=== PATIENT | female | born 1940 | race Caucasian/White ===

== ENCOUNTER → 2016-05-16 | Outpatient (CLI) | payer MEDICARE, OTHER ==
[~2016-05-16] MED LIST: ALBUTEROL17 GM INH; ALL DAY ALLERGY10 M3 PO; AMLODIPINE BESYL5 MG PO; ATENOLOL25 MG PO; ATENOLOL50 MG PO; AZITHROMYCIN250 MG PO; B-COMPLEX-VITA1 EACH SL; BACTRIM DS TABL1 TA1 PO; BENICAR20 MG PO; BENTYL20 MG PO; CERTAGEN PO; CITALOPRAM HBR40 M1 PO; COUMADIN5 MG; COUMADIN5 MG PO; DARVOCET-N 1001 TA1 PO; DELTASONE20 MG PO; ENFOLAST TABLE1 EACH PO; FERROUS SULFATE PO; FLAGYL PO; FLOVENT DISKUS50 MCG; FOLIC ACID800 MCG PO; FUROSEMIDE40 MG PO; GABAPENTIN400 MG PO; HORIZANT; HYDROCHLOROTHIA25 MG PO; HYDROCODON-ACE1 EAC8 PO; HYDROMET SYRUP480 ML PO; IRON1 TA1 PO; K-DUR20 ME1 PO; KCL PO; KLOR-CON PO; LASIX PO; LISINOPRIL PO; LISINOPRIL20 MG PO; LOMOTIL WHITE2.5 MG PO; LOVENOX SUBQ; LOVENOX80 MG/0.8 INJ; METAFOLBIC TAB1 EACH PO; METHYLPREDNISOLO4 M1 PO; METRONIDAZOLE PO; MOBIC PO; MUCINEX100 MG/5 M PO; NAPROXEN375 MG PO; NEURONTIN PO; NEURONTIN600 MG PO; NEVANAC OP; OMEPRAZOLE40 MG PO; OMNIPRED10 ML OP; OXYCODONE HCL10 MG PO; PREDNISONE PO; PRILOSEC PO; PROGLYCEM PO; PROGLYCEM SL; PROMETH-CODEIN 65 ML PO; REGLAN PO; TENORMIN50 MG PO; ULTRAM PO; VICODIN 5/500 T1 TAB PO; VIGAMOX3 M1 OP; VITAMIN B 12 SL; VITAMIN B 3 PO; VITAMIN B125000 MCG PO; VITAMIN C PO; VITAMIN D50000 UNIT PO
--- NOTE | ~2016-05-16 | US85 ---
[facility] A Service of [facility] & [facility] RADIOLOGY TEXT RESULTS PATIENT: KATHIE ESCOBEDO LOCATION: CNIV : 42 UNIT #: [id number] AGE: [address]: TONI POZO MD SEX: F ORDER DR: [id number] [facility] [address] [facility]. [place], [place] [address] [id number] O MR#: [id number] Acc #: [id number] NAME: KATHIE ESCOBEDO : 1940 SEX: F STUDY DATE/TIME: 05/16/2016 17:05 UNIT: CNIV ROOM: STUDY DESCRIPTION: [facility] or [facility] Attending Physician: Toni Pozo M.D. Referring Physician: Toni Pozo M.D. Ordering Physician: Toni Pozo M.D. Primary Care Physician: Toni Pozo M.D. MEDICAL IMAGING REPORT This report is preliminary unless electronic signature is present EXAM Right lower extremity venous duplex 05/16/2016 HISTORY Right lower extremity swelling for 12 days with history of prior lower extremity DVT 4 years ago. Evaluate for deep vein thrombosis. TECHNIQUE Venous ultrasound examination of the right lower extremity was performed using grayscale, spectral Doppler and color flow Doppler imaging. FINDINGS The examination is negative. There is no evidence of right lower extremity deep venous thrombus from the groin to the lower calf. Visualized greater saphenous vein is also patent. IMPRESSION Negative examination. No evidence of right lower extremity deep venous thrombosis. Dictated by... Lewis Martinez M.D. THIS IS AN ELECTRONICALLY VERIFIED REPORT Lewis Martinez M.D. at 05/19/2016 7:39 AM MONIQUE/callie TD: 05/17/2016 02:05 JOB #: [id number] MEDICAL IMAGING REPORT Page 1 of 1 COPY
== END | disposition home or self-care (01) ==
LOC: CNIV 16:12
DX: M79.604 Pain in right leg (principal); M79.89 Other specified soft tissue disorders
CPT/HCPCS: 93971

== ENCOUNTER → 2016-09-11 | Day surgery (SDC) | payer MEDICARE, OTHER ==
--- NOTE | ~2016-09-11 | OR ---
Unit #: [id number] #: [id number] Patient: KATHIE ESCOBEDO [id number] [address] [address] [id number] O MR#: [id number] NAME: KATHIE ESCOBEDO. ROOM: Date of Procedure: 09/11/2016 Admission Date: 09/11/2016 Surgeon: Quintin Perry M.D. : 1940 Attending Physician: Quintin Perry M.D. Primary Care Physician: Toni Polo M.D. OPERATIVE REPORT PREOPERATIVE DIAGNOSES Back pain, radiculopathy, spondylolisthesis, degenerative disk disease, spinal stenosis. POSTOPERATIVE DIAGNOSES Back pain, radiculopathy, spondylolisthesis, degenerative disk disease, spinal stenosis. PROCEDURE PERFORMED Lumbar epidural steroid injection with intravenous sedation and fluoroscopic guidance for needle localization. INDICATIONS FOR PROCEDURE The patient is a 76-year-old female with return of back and right greater than left lower extremity pain due to previously mentioned nonsurgical diagnosis. She was treated with the central epidural steroid injections in 2014, single side again in 2016 which to gave her recently about 9 months of near resolution of her pain. Based on history, pathology, and symptomatology, we are going to proceed with a repeat epidural steroid injection today. DESCRIPTION OF PROCEDURE The patient was placed in a seated position. Standard monitors were applied. 2 mg of Versed were given for sedation and anxiolysis, which were adequate. Vital signs remained stable. Sterile prep and drape then of the lumbar area was performed. The skin then at the L4-L5 level was localized with 1% lidocaine. An 18-gauge EPStead needle was then advanced via loss of resistance technique and fluoroscopic guidance in toward the epidural space. After confirming proper positioning with fluoroscopy and radiographic contrast, 80 mg Depo-Medrol and 4 mL of 0.125% bupivacaine were deposited. The patient tolerated the procedure otherwise well and was discharged to the recovery room in stable condition. Dictated by... Quintin Perry M.D. LHP/modl TD: 09/11/2016 11:53 JOB #: [id number] Unit #: [id number] #: [id number] Patient: KATHIE ESCOBEDO OPERATIVE REPORT Page 1 of 1 X Quintin Perry MD X PROCEDURE OPERATIVE NOTE
== END | disposition home or self-care (01) ==
LOC: CCSC 07:11
DX: M51.16 Intervertebral disc disorders with radiculopathy, lumbar region (principal); M43.16 Spondylolisthesis, lumbar region; M48.06 Spinal stenosis, lumbar region; I25.10 Atherosclerotic heart disease of native coronary artery without angina pectoris; I10 Essential (primary) hypertension
CPT/HCPCS: J1040; J2250

== ENCOUNTER → 2016-09-18 | Day surgery (SDC) | payer MEDICARE, OTHER ==
--- NOTE | ~2016-09-18 | OR ---
Unit #: [id number] #: [id number] Patient: KATHIE ESCOBEDO [id number] [address] [place], [place] [address] [id number] O MR#: [id number] NAME: KATHIE ESCOBEDO ROOM: Date of Procedure: 09/18/2016 Admission Date: 09/18/2016 Surgeon: Quintin Perry M.D. : 1940 Attending Physician: Quintin Perry M.D. Primary Care Physician: Toni Polo M.D. OPERATIVE REPORT PREOPERATIVE DIAGNOSES Back pain, radiculopathy, degenerative disk disease, spinal stenosis and spondylolisthesis. POSTOPERATIVE DIAGNOSES Back pain, radiculopathy, degenerative disk disease, spinal stenosis and spondylolisthesis. PROCEDURE PERFORMED Lumbar epidural steroid injection with intravenous sedation under fluoroscopic guidance for needle localization. HISTORY The patient is a 76-year-old female, who presented with return of back and right much greater than left lower extremity pain due to known multilevel multifactorial degenerative disk and spine disease. She was last treated for this about 9 months ago and did very well for 8 months with near 100% resolution of her symptom complex. She had repeat injection done last week, which resulted in about 50% settling of her symptoms. She is walking much better. Based on this good partial response, pathology, symptomatology, and prior response, we are going to proceed with a second injection today. DESCRIPTION OF PROCEDURE The patient was placed in the seated position. Standard monitors were applied. Then, 2 mg of Versed were given for sedation and anxiolysis, which were adequate. Vital signs remained stable. Sterile prep and drape then of the lumbar area was performed. The skin then at the L4-L5 level was localized with 1% lidocaine. An 18-gauge [place] [employer] needle was then advanced via loss of resistance technique and fluoroscopic guidance in toward the epidural space. After confirming proper positioning with fluoroscopy and radiographic contrast, 80 mg of Depo-Medrol and 4 mL of 0.125% bupivacaine were deposited. The patient tolerated the procedure otherwise well and was discharged to the recovery room in stable condition. Dictated by... Quintin Perry M.D. LHP/brooksl Unit #: [id number] #: [id number] Patient: KATHIE ESCOBEDO TD: 09/18/2016 08:50 JOB #: [id number] CC: [facility] OPERATIVE REPORT Page 1 of 1 X Quintin Perry MD X PROCEDURE OPERATIVE NOTE
== END | disposition home or self-care (01) ==
LOC: CCSC 07:06
DX: M51.16 Intervertebral disc disorders with radiculopathy, lumbar region (principal); M48.06 Spinal stenosis, lumbar region; M43.16 Spondylolisthesis, lumbar region; I25.10 Atherosclerotic heart disease of native coronary artery without angina pectoris; I10 Essential (primary) hypertension; M19.90 Unspecified osteoarthritis, unspecified site; Z88.0 Allergy status to penicillin; Z79.01 Long term (current) use of anticoagulants; Z79.899 Other long term (current) drug therapy
CPT/HCPCS: J1040; J2250

== ENCOUNTER → 2016-09-25 | Day surgery (SDC) | payer MEDICARE, OTHER ==
--- NOTE | ~2016-09-25 | OR ---
Unit #: [id number] #: [id number] Patient: KATHIE ESCOBEDO [id number] [address] [place], [place] [address] [id number] O MR#: [id number] NAME: KATHIE ESCOBEDO ROOM: Date of Procedure: 09/25/2016 Admission Date: 09/25/2016 Surgeon: Quintin Perry M.D. : 1940 Attending Physician: Quintni Perry M.D. Primary Care Physician: Toni Polo M.D. OPERATIVE REPORT JOB NOTE: CC: [facility] PREOPERATIVE DIAGNOSES Back pain, radiculopathy, spinal stenosis, spondylolisthesis, degenerative disk disease. POSTOPERATIVE DIAGNOSES Back pain, radiculopathy, spinal stenosis, spondylolisthesis, degenerative disk disease. PROCEDURE PERFORMED Lumbar epidural steroid injection with intravenous sedation and fluoroscopic guidance for needle localization. INDICATIONS FOR PROCEDURE The patient is a 76-year-old female with return of back and right greater than left lower extremity pain due to previously mentioned nonsurgical pathology. She was treated p.r.n. with epidural steroid injections. Last injections done in 2016 gave about 9 months of near 100% pain resolution. She had resurgence of the pain, so the decision was made to repeat the injection. Two were done to this point. Again, additively 60% to 70% improvement not quite back to baseline that she had before, so proceed with this final injection today. DESCRIPTION OF PROCEDURE The patient was placed in the seated position. Standard monitors were applied. 1 mg of Versed was given for sedation and anxiolysis, which was adequate. Vital signs remained stable. Sterile prep and drape then of the lumbar area was performed. The skin then at the L4-L5 level was localized with 1% lidocaine. An 18-gauge [employer] Gl[employer] needle was then advanced via loss of resistance technique and fluoroscopic guidance in toward the epidural space. After confirming proper positioning with fluoroscopy and radiographic contrast, 80 mg of Depo-Medrol and 4 mL of 0.125% bupivacaine were deposited. The patient tolerated the procedure otherwise well and was discharged to recovery room in stable condition. Dictated by... Quintin Perry M.D. LHP/brendan Unit #: [id number] #: [id number] Patient: KATHIE ESCOBEDO TD: 09/25/2016 14:11 JOB #: [id number] OPERATIVE REPORT Page 1 of 1 X Quintin Perry MD X PROCEDURE OPERATIVE NOTE
== END | disposition home or self-care (01) ==
LOC: CCSC 07:02
DX: M51.16 Intervertebral disc disorders with radiculopathy, lumbar region (principal); M48.06 Spinal stenosis, lumbar region; M43.16 Spondylolisthesis, lumbar region; I10 Essential (primary) hypertension; I25.10 Atherosclerotic heart disease of native coronary artery without angina pectoris; M19.90 Unspecified osteoarthritis, unspecified site; Z88.0 Allergy status to penicillin; Z79.01 Long term (current) use of anticoagulants; Z79.899 Other long term (current) drug therapy
CPT/HCPCS: J1040; J2250